=== PATIENT | male | born 1960 | race Caucasian/White ===

== ENCOUNTER 2016-10-15 08:52 | Inpatient (IN) | payer OTHER ==
[2016-10-15] VITALS (12 sets, daily range): BP systolic 131–168; BP diastolic 74–98
[~2016-10-15] VITALS: Ht 175.3 cm; Wt 72.6 kg
[~2016-10-15 08:52] MED LIST: LIORESAL 10MG T10 MG PO; MOTRIN 600 MG600 MG PO; ZITHROMAX250 M2 PO
--- NOTE | 2016-10-15 09:18 | NUR ---
PT MEDICATED WITH ATIVAN PER EMAR.
--- NOTE | 2016-10-15 09:19 | ED DYSPNEA/ASTHMA COMPLAINT ---
History of Present Illness General Chief Complaint: Chest Pain Stated Complaint: CP, SOB, REQUESTING DETOX Source: patient Exam Limitations: no limitations Vital Signs & Intake/Output Vital Signs & Intake/Output Vital Signs Date Time Temp Pulse Resp B/P Pulse O2 O2 Flow FiO2 Ox Delivery Rate 10/17 1609 98.2 103 19 132/84 95 10/17 1200 98.0 70 20 136/70 10/17 0700 97.6 84 18 124/88 96 Room Air 10/16 2343 98.1 94 18 130/84 96 Room Air ED Intake and Output 10/17 0000 10/16 1200 Intake Total 1220 Output Total 250 1 Balance 970 -1 Intake, IV 20 Intake, Oral 1200 Output, Stool 1 Output, Urine 250 Allergies Coded Allergies: NO KNOWN ALLERGIES (12/25/13) Per antibiotic order sheet. -- Pat 12/25/13 Reconcile Medications Folic Acid 1 MG TABLET 1 MG PO DAILY Supplement Lorazepam 1 MG TABLET 2 MG PO Q12 ALCOHOL WITHDRAWAL TAKE ONE DOSE TONIGHT AND THEN TOMORROW MORNING (10/20). Melatonin 5 MG TABLET 5 MG PO AT BEDTIME INSOMNIA Nicotine (Nicorelief) 2 MG GUM 2 MG PO Q4-6 PRN PRN TOBACCO WITHDRAWAL Thiamine HCl (Vitamin B-1) 100 MG TABLET 100 MG PO DAILY Supplement Triage Nurses Notes Reviewed? yes HPI: Patient presents for evaluation of dyspnea that began overnight. Patient has seen Dr. Hoover and was in the process of being referred to Dr. Elizabeth for further evaluation. Since states that he is a heavy alcohol abuser and had his last drink at about 10 to 11:00 last night. He has been drinking heavily, about a bottle of rum per day since July of last year. Prior to that he was sober for 6 years. Since symptoms are otherwise described as intermittent and of a mild intensity. Nothing seems to make symptoms better or worse. Past History Travel History Traveled to [place] past 21 day No Medical History Any Pertinent Medical History? see below for history Neurological: NONE EENT: NONE Cardiovascular: NONE Respiratory: NONE Gastrointestinal: NONE Hepatic: NONE Renal: NONE Musculoskeletal: fracture Psychiatric: NONE Endocrine: NONE Blood Disorders: NONE Cancer(s): NONE CRIMINAL INTELLIGENCE SPECIALIST/Reproductive: NONE Surgical History Surgical History: non-contributory Psychosocial History Who do you live with Spouse What is your primary language Greenlandic Family History Hx Contributory? No Review of Systems Review of Systems Constitutional: Reports: no symptoms. EENTM: Reports: no symptoms. Respiratory: Reports: short of breath. Cardiovascular: Reports: chest pain. GI: Reports: no symptoms. Genitourinary: Reports: no symptoms. Musculoskeletal: Reports: no symptoms. Skin: Reports: no symptoms. Neurological/Psychological: Reports: no symptoms. Hematologic/Endocrine: Reports: no symptoms. Immunologic/Allergic: Reports: no symptoms. All Other Systems: Reviewed and Negative Physical Exam Physical Exam Respiratory: SEE BELOW Comments: Gen.: Well-nourished, well-developed, no acute respiratory distress. Head: Normocephalic, atraumatic. Eyes: Normal inspection bilaterally Ears: Normal inspection bilaterally Nose: Normal inspection Throat/mouth : Moist mucosa Neck: Supple, full range of motion, no goiter Heart: Regular rate and rhythm, no murmurs rubs or gallops Lungs: Clear to auscultation bilaterally with normal air entry Chest: Nontender Back: Normal range of motion Abdomen: Soft, nontender, nondistended, normal bowel sounds Extremities: Normal range of motion grossly, equal radial pulses, no cyanosis clubbing or edema Neurologic: Cranial nerves grossly intact, speech is clear Skin: warm and dry Psychiatric: Calm, cooperative, no apparent delusions or hallucinations Core Measures ACS in differential dx? No Severe Sepsis Present: No Septic Shock Present: No Progress Differential Diagnosis: ALCOHOL DEPENDENCE, ANXIETY Plan of Care: Orders Procedure Date/time Status Nothing by Mouth 10/18 B Active US-LIMITED ABDOMEN 10/18 0800 Active Lab Add-on Test 10/17 0833 Active HEPATIC FUNCTION PANEL 10/17 0626 Active BASIC ELECTROLYTES PLUS BUN&CR 10/17 0626 Active Laboratory Tests 10/17/16 0612: CBC w Diff NO MAN DIFF REQ, RBC 3.69 L, MCV 108.8 H, MCH 37.0 H, RDW 15.2 H, MPV 8.5, Gran % 72.2, Lymphocytes % 7.9 L, Monocytes % 15.7 H, Eosinophils % 3.5, Basophils % 0.7, Absolute Granulocytes 2.3, Absolute Lymphocytes 0.3 L, Absolute Monocytes 0.5, Absolute Eosinophils 0.1, Absolute Basophils 0, PUBS MCHC 34.0 Diagnostic Imaging: Discussed w/RAD: Radiology Read. CXR Impression: SMALL FOCUS OF DISEASE C/W PNEUMONIA Initial ED EKG: NSR, no ST T wave changes Comments: 10/15/2016 9:16:16 AM the patient has a pronounced gross tremors and a CIWA score of 13. I feel that he is in severe alcohol withdrawal and at very high risk of an impending withdrawal seizure. Ativan has been ordered. pt has indication of pneumonia on chest xray but states he was already dxed with pneumonia by dr hoover, per nursing notes. however, pt has no fever or productive cough, clinical presentation inconsistent with pneumonia. Departure Departure Disposition: STILL A PATIENT Condition: Stable Clinical Impression Primary Impression: Alcoholic hepatitis Qualifiers: Ascites presence: without ascites Qualified Code: K70.10 - Alcoholic hepatitis without ascites Secondary Impressions: Alcohol withdrawal syndrome with complication Qualifiers: Complication of substance-induced condition: with unspecified complication Qualified Code: F10.239 - Alcohol dependence with withdrawal, unspecified Dyspnea Qualifiers: Dyspnea type: shortness of breath Qualified Code: R06.02 - Shortness of breath Referrals: GABRIELA YANES,ROB Leiva (PCP/Family) Departure Forms: Customer Survey General Discharge Information Prescriptions: Current Visit Scripts Folic Acid 1 MG PO DAILY 14 Days Thiamine HCl (Vitamin B-1) 100 MG PO DAILY 14 Days Nicotine (Nicorelief) 2 MG PO Q4-6 PRN PRN TOBACCO WITHDRAWAL 14 Days Lorazepam 2 MG PO Q12 #2 TAKE ONE DOSE TONIGHT AND THEN TOMORROW MORNING (10/20). Melatonin 5 MG PO AT BEDTIME 30 Days Admission Note Spoke With: YEHUDA YANES,GAETANO Melo Documentation of Exam: Documentation of any treatments & extenuating circumstances including Concerns Regarding Discharge (functional status, medication knowledge or non-compliance, living conditions, etc.) that warrant an admission rather than observation: Patient presented for evaluation of shortness of breath. However upon presentation to the emergency department the patient had severe gross tremors secondary to alcohol withdrawal. I felt the patient was at very high risk of impending alcohol withdrawal seizure. In addition he presented hypertensive and tachycardic consistent with an acute EtOH withdrawal syndrome. He has responded well to intravenous Ativan with improvement in blood pressure heart rate and tremors. HIS emergency department evaluation reveals elevations in transaminases consistent with alcohol hepatitis. I feel this patient is a very poor candidate for outpatient management at this time given his very high risk of alcohol withdrawal seizures or delirium tremens. I feel he would have great difficulty in compliance with outpatient treatment. Given his presentation I feel he requires hospitalization for treatment with IV Ativan and close clinical monitoring of heart rate blood pressure and CIWA scores. The patient should be administered IV fluids and have liver function studies monitored until transaminases be given to improve. I feel this patient will require a multiple day hospitalization. His acute alcohol withdrawal places him at risk of alcohol withdrawal seizures and delirium tremens for up to 5 days. Critical Care Note Critical Care Note Critical Care Time: 30-74 min
--- NOTE | 2016-10-15 09:25 | NUR ---
PT TO ED FOR CHEST PAIN AND SOB THAT STARTED TODAY. ALSO REQUESTING DETOX FROM ALCOHOL. PT REPORTS HE WAS SOBER FROM ETOH UP UNTIL JULY 2016 RELATED TO STRESS. PT REPORTS TO DRINKING "HALF A HANDLE OF RUM A DAY." LAST DRINK WAS LAST NIGHT 10/14/16 AROUND 2300. PT ARRIVES EXTREMELY SHAKY AT REST, +INTERMITTENT NAUSEA. RECENTLY DIAGNOSED WITH PNEUMONIA BY DR. MUNSON. DENIES ANY KIND OF HALLUCINATIONS. DENIES SI/HI. DR. ONOFRE AT BEDSIDE FOR EVAL.
--- NOTE | 2016-10-15 09:28 | NUR ---
BLOOD WORK SENT TO LAB NOW: SST, LAV, BLUE, DIAZ AND PINK TOPS.
[2016-10-15 09:42] LABS: ABSOLUTE BASOPHIL COUNT 0 /CUMM (0.0-0.2); ABSOLUTE EOSINOPHIL COUNT 0.1 /CUMM (0.0-0.7); ABSOLUTE GRANULOCYTE CT 5.2 /CUMM (1.4-6.5); ABSOLUTE LYMPH COUNT 0.4 /CUMM (1.2-3.4); ABSOLUTE MONOCYTE COUNT 0.6 /CUMM (0.10-0.60); BASOPHIL % 0.2 % (0.0-2.0); GRANULOCYTE % 83.4 % (42.2-75.2); MEAN CORPUSCULAR HGB 36.8 PG (27.0-31.0); MEAN CORPUSCULAR HGB CONC 33.9 G/DL (33.0-37.0); MEAN CORPUSCULAR VOLUME 108.8 FL (80.0-94.0); MEAN PLATELET VOLUME 7.9 FL (7.4-10.4); RBC DISTRIBUTION WIDTH 15.4 % (11.5-14.5); RED BLOOD CELL CT 3.67 /CUMM (4.70-6.10); WHITE BLOOD CELL COUNT 6.2 /CUMM (4.8-10.8)
[2016-10-15 09:54] LABS: PLATELET COUNT 48 /CUMM (130-400)
--- NOTE | 2016-10-15 10:00 | NUR ---
TODD () -HOME NUMBER FOR CONTACT [phone]
--- NOTE | 2016-10-15 10:55 | NUR ---
PT MEDICATED WITH IV ATIVAN PER EMAR.
--- NOTE | 2016-10-15 11:24 | NUR ---
PT'S O2 SAT 90% ON RA. PT PLACED ON 1L OF NC OXYGEN.
--- NOTE | 2016-10-15 13:13 | NUR ---
PT URINE SENT TO THE LAB
--- NOTE | 2016-10-15 13:20 | RADIOLOGY REPORT ---
EXAMINATION: XR PORTABLE CHEST CLINICAL INFORMATION: Dyspnea COMPARISON: May 17, 2016 TECHNIQUE: Portable view of the chest was obtained. FINDINGS: There is a 3 cm region of parenchymal density seen in the right lower lung. No pneumothorax or pleural effusion. Heart normal size. No evidence of pulmonary edema. IMPRESSION: Right lower lobe small focus of disease consistent with pneumonia.
--- NOTE | 2016-10-15 13:31 | History & Physical ---
GAB YANES,[facility] 10/15/16 1331: General Information and HPI MD Statement: I have seen and personally examined OSVALDO KEMP and documented this H&P. The patient is a 55 year old M who presented with a patient stated chief complaint of [etoh abuse]. Source of Information: patient Exam Limitations: no limitations History of Present Illness: 55-year-old male with past medical history of alcohol abuse, smoking presents to the ED with complaints of chest pain and shortness of breath. Patient reports chest pain and shortness of breath since being treated for pneumonia as an outpatient in May. He was followed up by Dr. Hoover. CAT scan showed a nodules less than 6 mm recently. Lung function tests were normal. He is awaiting to see Dr. Elizabeth for further evaluation of shortness of breath. Patient has a history of alcohol abuse. His last admission was 6 years ago, was admitted in ICU after having a withdrawal seizure and was monitored for 6 days. Today he reports having any seizure. Family was present while I was interviewing the patient. He reports drinking, about 1.5 L daily. His last drink was at 11 AM yesterday. Has been sober from 2009 to July 2016. Patient lost his job and a lot of stress with family circumstances and hence resumed to drink again. Has never been in inpatient rehabilitation for alcohol Allergies/Medications Allergies: Coded Allergies: NO KNOWN ALLERGIES (12/25/13) Per antibiotic order sheet. -- Pat 12/25/13 Home Med list No Known Home Medications Past History Travel History Traveled to [place] past 21 day No Medical History Neurological: NONE EENT: NONE Cardiovascular: NONE Respiratory: PNA Gastrointestinal: NONE Hepatic: NONE Renal: NONE Musculoskeletal: fracture Psychiatric: alcohol dependence Endocrine: NONE Blood Disorders: NONE Cancer(s): NONE DIRECT SALES PROFESSIONAL/Reproductive: NONE Surgical History Surgical History: non-contributory Past Family/Social History Family History Relations & Conditions if any FATHER FHx: heart disease BROTHER FHx: heart disease Psychosocial History Where do you live? Home Who Do You Live With? spouse Services at Home: None Smoking Status: Current Everyday Smoker ETOH Use: alcoholic Illicit Drug Use: denies illicit drug use Functional Ability ADLs Independent: dressing, eating, toileting, bathing. Ambulation: independent IADLs Independent: shopping, housework, finances, food prep, telephone, transportation , medication admin. 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 Exam & Diagnostic Data Last 24 Hrs of Vital Signs/I&O Vital Signs Date Time Temp Pulse Resp B/P Pulse O2 O2 Flow FiO2 Ox Delivery Rate 10/15 1329 98.1 93 20 162/93 95 Nasal 1.0L Cannula 10/15 1328 98.1 96 20 162/93 10/15 1229 98.3 86 15 145/90 10/15 1228 98.3 86 15 145/90 95 Nasal 1.0L Cannula 10/15 1214 97.6 91 18 142/85 94 Nasal 1.0L Cannula 10/15 1127 98.3 81 15 131/74 10/15 1127 98.3 81 15 131/74 96 Nasal 1.0L Cannula 10/15 1100 90 Room Air Room Air 10/15 1027 98.3 93 15 149/86 10/15 1021 98.3 93 15 149/86 91 Room Air Room Air 10/15 0907 98.2 107 20 158/91 10/15 0901 97.9 112 24 158/91 98 Room Air Intake & Output 10/15 1600 10/15 0800 10/15 0000 Intake Total 1000 Output Total Balance 1000 Intake, IV 1000 Intake, Oral 0 Physical Exam General Appearance Alert, Oriented X3, Cooperative, No Acute Distress Skin No Rashes Cardiovascular Regular Rate, Normal S1, Normal S2, No Murmurs Lungs b/l ronchi present Abdomen Normal Bowel Sounds, Soft, No Tenderness Neurological Normal Speech Extremities No Clubbing, No Cyanosis, No Edema Assessment/Plan Assessment: Assessment and plan 1. EtOH dependence: We will admit the patient to general medical floor. We'll start him on Ativan scheduled and when necessary per CIWA. Him on aspiration and seizure precautions. Will obtain social work consult tomorrow. In the ED was negative. 2. Transaminitis most likely due to EtOH use: Denies abdominal pain today. We' ll continue to monitor. 3. Smoker: We'll start a monitored in patch and also him on smoking cessation while is in the hospital. 4. Chest pain: Denies active chest pain today. We'll continue to hold off on checking troponins and EKG. But if symptoms recur will obtain both. 5. Thrombocytopenia with increased MCV most likely due to alcohol causing bone marrow suppression: His hemoglobin is also on the lower side. We'll check his vitamin B12 and folate. Full CODE STATUS DVT prophylaxis with Alps secondary to thrombocytopenia As Ranked By This Provider Problem List: 1. Alcohol withdrawal syndrome with complication Qualifiers Complication of substance-induced condition: with unspecified complication Qualified Code: F10.239 - Alcohol dependence with withdrawal, unspecified 2. Alcoholic hepatitis Qualifiers Ascites presence: without ascites Qualified Code: K70.10 - Alcoholic hepatitis without ascites 3. Dyspnea Qualifiers Dyspnea type: shortness of breath Qualified Code: R06.02 - Shortness of breath Core Measures/Miscellaneous Acute Coronary Syndrome ACS Diagnosis: No Cerebrovascular Accident CVA/TIA Diagnosis: No Congestive Heart Failure CHF Diagnosis: No Venous Thromboembolism VTE Risk Factors: Age > 40 VTE Prophylaxis Ordered Inpt: Mechanical (ALPS/TEDS) No Mech VTE prophylaxis d/t: No contraindications No VTE Pharm Prophylaxis d/t: No contraindications VTE Diagnosis: No VTE Type: NONE VTE Confirmed by (Test): NONE Severe Sepsis Severe Sepsis Present: No Septic Shock Septic Shock Present: No Miscellaneous Documentation Attending Case Discussed With: Adenike Primary Care Physician: ROB OCHOA MD Patient sees these Specialists None Level of Patient Care: General Medicine ROSARIO REYES MD 10/16/16 1151: Attending MD Review Statement Attending Statement Attending MD Statement: examined this patient, discuss w/resident/PA/IRONWORKER MACHINE OPERATOR, agreed w/resident/PA/IRONWORKER MACHINE OPERATOR, reviewed EMR data (avail) Attending Assessment/Plan: Agree with resident assessment and plan. Will start scheduled Ativan with PRN, CIWA scoring, vitamin supplementation, monitor electrolytes, DVT PPx
--- NOTE | 2016-10-15 15:15 | NUR ---
BED ASSIGNMENT 204-01
--- NOTE | 2016-10-15 15:37 | NUR ---
REPORT GIVEN TO TONY FORREST. WILL CALL WHEN BED IS READY.
--- NOTE | 2016-10-15 15:47 | NUR ---
PER FLOOR NURSE, IV FLUIDS TO BE HUNG UPSTAIRS ON PUMP.
--- NOTE | 2016-10-15 17:00 | NUR ---
PT STABLE FOR TRANSPORT AND LEFT ED NOW.
--- NOTE | 2016-10-15 18:52 | NUR ---
NURSING NOTE; LATE ENTRY; PT ADMITTED TO FROM ER AT 1710 VIA STRETCHER. PT AMBULATED TO BED WITH UNSTEADY GAIT. PT ALERT AND ORIENTED X3. TREMORS PRESENT. CIWA 10 AND PT MEDICATED WITH PRN ATIVAN. PT DENIES CP AND DENIES SOB. IVF RUNNING PER EMAR. PT OREINTED TO ROOM AND CALL ONOFRE. BED ALARM PLUGGED IN. WILL CONTINUE TO MONITOR.
[2016-10-16 08:01] VITALS: BP 140/70
--- NOTE | 2016-10-16 09:12 | PN- Housestaff ---
JUANY YANES,JASIEL 10/16/16 0911: Subjective Follow-up For: Alcohol detox Pancytopenia Subjective: Patient seen and examined at bedside. Resting comfortably in bed in no acute distress. Denies any chest pain or dyspnea this morning. No headache, sweating, n/v. He endorses some tremors though. CIWA score 7 currently, he required 2mg of IV Ativan 1mg PRN over the past 24 hrs. Review of Systems Constitutional: Reports: see HPI. Objective Last 24 Hrs of Vital Signs/I&O Vital Signs Date Time Temp Pulse Resp B/P Pulse O2 O2 Flow FiO2 Ox Delivery Rate 10/16 0801 98.3 80 20 140/70 92 Room Air 10/15 2346 97.9 74 20 144/86 93 10/15 2330 97.9 74 20 144/86 10/15 1831 80 150/80 10/15 1738 160/90 10/15 1731 98.7 80 19 168/98 94 10/15 1527 99.2 98 15 152/94 10/15 1527 99.2 98 20 152/94 94 Room Air Room Air 10/15 1427 97.2 94 20 148/90 10/15 1427 97.2 94 20 148/90 93 Room Air Room Air 10/15 1329 98.1 93 20 162/93 95 Nasal 1.0L Cannula 10/15 1328 98.1 96 20 162/93 10/15 1229 98.3 86 15 145/90 10/15 1228 98.3 86 15 145/90 95 Nasal 1.0L Cannula 10/15 1214 97.6 91 18 142/85 94 Nasal 1.0L Cannula 10/15 1127 98.3 81 15 131/74 10/15 1127 98.3 81 15 131/74 96 Nasal 1.0L Cannula 10/15 1100 90 Room Air Room Air 10/15 1027 98.3 93 15 149/86 10/15 1021 98.3 93 15 149/86 91 Room Air Room Air Intake & Output 10/16 1600 10/16 0800 10/16 0000 Intake Total 500 Output Total 350 Balance 150 Intake, Oral 500 Output, Urine 350 Patient 72.575 kg Weight Physical Exam General Appearance: Alert, Oriented X3, Cooperative, No Acute Distress Other Physical Findings: Skin No Rashes Cardiovascular Regular Rate, Normal S1, Normal S2, No Murmurs Lungs CTA, normal BS Abdomen Normal Bowel Sounds, Soft, No Tenderness Neurological Normal Speech Extremities No Clubbing, No Cyanosis, No Edema Current Medications: Current Medications Sig/Remington Start time Last Medication Dose Route Stop Time Status Admin Cyanocobalamin/ 1 BAG ONCE ONE 10/15 0930 DC 10/15 Thiamine/Pyridoxine IV 10/15 1729 0956 Sodium Chloride 1,000 ML Folic Acid 1 MG DAILY 10/16 1000 AC PO Influenza Virus 0.5 ML ONCE ONE 10/15 1800 DC 10/15 Vaccine IM 10/15 1801 2125 Lorazepam 0 .STK-MED ONE 10/15 1428 DC PO Lorazepam 0 Q1P PRN 10/15 1345 AC 10/15 IV 2125 Lorazepam 2 MG Q6 10/15 1336 AC 10/16 PO 0544 Lorazepam 2 MG Q2P PRN 10/15 1300 DC IV Lorazepam 1 MG Q2P PRN 10/15 1300 DC IV Lorazepam 2 MG ONE ONE 10/15 1100 DC 10/15 IV 10/15 1101 1055 Lorazepam 0 .STK-MED ONE 10/15 1053 DC .ROUTE Lorazepam 2 MG ONE ONE 10/15 0930 DC 10/15 IV 10/15 0931 0922 Melatonin 5 MG AT BEDTIME 10/15 2200 AC 10/15 PO 2125 Multivitamins 1 TAB DAILY 10/16 1000 AC PO Nicotine 0 .STK-MED ONE 10/15 1428 DC TOP Nicotine 21 MG DAILY 10/15 1420 AC 10/15 TOP 1433 Sodium Chloride 1,000 ML Q10H 10/15 1345 DC 10/15 IV 10/15 2344 1733 Thiamine HCl 100 MG DAILY 10/16 1000 AC PO Thiamine HCl 0 .STK-MED ONE 10/15 0935 DC .ROUTE Last 24 Hrs of Lab/Samuel Results Last 24 Hrs of Labs/Mics: Laboratory Tests 10/16/16 0610: Total Bilirubin Pending, Direct Bilirubin Pending, AST Pending, ALT Pending, Alkaline Phosphatase Pending, Total Protein Pending, Albumin Pending, CBC w Diff Pending, WBC Pending, RBC Pending, Hgb Pending, Hct Pending, MCV Pending, MCH Pending, RDW Pending, Plt Count Pending, MPV Pending, PUBS MCHC Pending 10/15/16 1845: Lactic Acid Cancelled 10/15/16 1845: Lactic Acid 1.7 10/15/16 1311: Urine Opiates Screen < 100.00, Methadone Screen < 40, Barbiturate Screen < 60, Ur Phencyclidine Scrn < 6.00, Amphetamines Screen < 100, U Benzodiazepines Scrn < 85, Urine Cocaine Screen < 50, Urine Cannabis Screen < 5.00 10/15/16 0925: Anion Gap 23 H, Estimated GFR > 60, BUN/Creatinine Ratio 12.9, Glucose 107 H, Serum Osmolality 299 H, Calcium 9.3, Magnesium 1.9, Total Bilirubin 1.1, AST 244 H, ALT 185 H, Alkaline Phosphatase 105, Total Protein 7.7, Albumin 4.7, Globulin 3.0, Albumin/Globulin Ratio 1.6, Lipase 272, Vitamin B12 868, Folate 3.6, PT 10.0, INR 0.95, CBC w Diff MAN DIFF ORDERED, RBC 3.67 L, MCV 108.8 H, MCH 36.8 H, RDW 15.4 H, MPV 7.9, Gran % 83.4 H, Lymphocytes % 5.7 L, Monocytes % 9.7 H, Eosinophils % 1.0, Basophils % 0.2, Absolute Granulocytes 5.2, Absolute Lymphocytes 0.4 L, Absolute Monocytes 0.6, Absolute Eosinophils 0.1, Absolute Basophils 0, Platelet Estimate DECREASED, Anisocytosis 1+, Macrocytic Cells 1+, Stomatocytes 1+, PUBS MCHC 33.9, Serum Alcohol 41.0 Assessment/Plan Assessment: 55-year-old male with past medical history of alcohol abuse who was admitted for alcohol intoxication. # EtOH dependence * Cont Ativan 2mg PO Q6 * Cont Ativan 1mg IV PRN per CIWA protocol * Aspiration and seizure precautions * Social work consulted, follow recs # Pancytopenia CBC on admission revealed WBC 6.2, H/H 13.5 & 40, plt 40. With increased MCV most likely due to alcohol-induced bone marrow suppression. * Check his vitamin B12 and folate - WNL * CBC daily - WBC 3.1, H/H 12.4 & 36.8, plt 25 * Fall precautions # Transaminitis Most likely due to EtOH use. Denies any abdominal pain. * Trend LFTs - improving # Tobacco use Patient smokes 2 packs a day. * Smoking cessation counseling * Nicotine patch daily * Nicotine gum as needed # Chest pain - resolved Currently denies active chest pain today. We'll continue to hold off on checking troponins and EKG. But if symptoms recur will obtain both. Full CODE STATUS DVT prophylaxis with Alps secondary to thrombocytopenia Problem List: 1. Myofascial pain on right side 2. PNA (pneumonia) 3. Alcoholic hepatitis 4. Alcohol withdrawal syndrome with complication 5. Dyspnea 6. Thrombocytopenia 7. Tobacco abuse Pain Ratin Pain Location: 0 Pain Goal: Remain pain free Pain Plan: Mild pathway Tomorrow's Labs & Rationales: CBC to monitor for thrombocytopenia GAETANO BLACKMAN 10/16/16 1600: Attending MD Review Statement Attending Statement Attending MD Statement: examined this patient, discuss w/resident/PA/CAREER REPRESENTATIVE, agreed w/resident/PA/CAREER REPRESENTATIVE, reviewed EMR data (avail), discussed with case mgmt Attending Assessment/Plan: Pt seen and examined at bedside. Has tremors from etoh withdrawl. Cont with CIWA protocol. Thrombocytopenia- platelets today are 25K. Secondary to alcohol. Nicotine dependence- cont. on nicotine patch. Transaminitis most likely due to EtOH use d/w pt the care plan.
[2016-10-16 09:21] LABS: ABSOLUTE BASOPHIL COUNT 0 /CUMM (0.0-0.2); ABSOLUTE EOSINOPHIL COUNT 0.1 /CUMM (0.0-0.7); ABSOLUTE LYMPH COUNT 0.2 /CUMM (1.2-3.4); RBC DISTRIBUTION WIDTH 15.3 % (11.5-14.5); WHITE BLOOD CELL COUNT 3.1 /CUMM (4.8-10.8)
[2016-10-16 10:14] LABS: ABSOLUTE GRANULOCYTE CT 2.4 /CUMM (1.4-6.5); ABSOLUTE MONOCYTE COUNT 0.4 /CUMM (0.10-0.60); BASOPHIL % 0.4 % (0.0-2.0); EOSINOPHIL % 2.5 % (0-5); GRANULOCYTE % 78.9 % (42.2-75.2); HEMATOCRIT 36.8 % (42-52); MEAN CORPUSCULAR HGB 36.8 PG (27.0-31.0); MEAN CORPUSCULAR HGB CONC 33.8 G/DL (33.0-37.0); MEAN CORPUSCULAR VOLUME 109.2 FL (80.0-94.0); MEAN PLATELET VOLUME 9.6 FL (7.4-10.4); RED BLOOD CELL CT 3.37 /CUMM (4.70-6.10)
[2016-10-16 10:42] LABS: PLATELET COUNT 25 /CUMM (130-400)
[2016-10-16 15:51] VITALS: BP 150/100
[2016-10-16 23:43] VITALS: BP 130/84
--- NOTE | 2016-10-17 06:31 | PN- Housestaff ---
See Addendum Subjective Follow-up For: Alcohol detox Pancytopenia Subjective: Patient seen and examined at bedside. Resting comfortably in bed in no acute distress. Had one CIWA score of 8 last night and then 0 since then overnight. Received 4 units of IV Ativan PRN over the past 24 hours. Denies any chest pain or dyspnea this morning. No headache, sweating, n/v. Review of Systems Constitutional: Reports: see HPI. Objective Last 24 Hrs of Vital Signs/I&O Vital Signs Date Time Temp Pulse Resp B/P Pulse O2 O2 Flow FiO2 Ox Delivery Rate 10/17 1200 98.0 70 20 136/70 10/17 0700 97.6 84 18 124/88 96 Room Air 10/16 2343 98.1 94 18 130/84 96 Room Air 10/16 1551 98.2 91 18 150/100 93 Intake & Output 10/17 1600 10/17 0800 10/17 0000 Intake Total 260 500 Output Total 250 Balance 260 250 Intake, IV 20 20 Intake, Oral 240 480 Output, Urine 250 Physical Exam General Appearance: Alert, Oriented X3, Cooperative, No Acute Distress Other Physical Findings: Skin No Rashes Cardiovascular Regular Rate, Normal S1, Normal S2, No Murmurs Lungs CTA, normal BS Abdomen Normal Bowel Sounds, Soft, No Tenderness Neurological Normal Speech Extremities No Clubbing, No Cyanosis, No Edema Current Medications: Current Medications Sig/Remington Start time Last Medication Dose Route Stop Time Status Admin Folic Acid 1 MG DAILY 10/16 1000 AC 10/17 PO 0815 Lactated Ringer's 1,000 ML Q13H 10/17 1015 AC 10/17 IV 1015 Lorazepam 0 Q1P PRN 10/15 1345 AC 10/17 IV 0815 Lorazepam 2 MG Q6 10/15 1336 AC 10/17 PO 1129 Melatonin 5 MG AT BEDTIME 10/15 2200 AC 10/16 PO 2204 Multivitamins 1 TAB DAILY 10/16 1000 AC 10/17 PO 0815 Nicotine 2 MG Q4-6 PRN PRN 10/16 1046 AC 10/16 PO 1818 Nicotine 21 MG DAILY 10/15 1420 AC 10/17 TOP 0814 Thiamine HCl 100 MG DAILY 10/16 1000 AC 10/17 PO 0815 Last 24 Hrs of Lab/Samuel Results Last 24 Hrs of Labs/Mics: Laboratory Tests 10/17/16 0612: CBC w Diff NO MAN DIFF REQ, RBC 3.69 L, MCV 108.8 H, MCH 37.0 H, RDW 15.2 H, MPV 8.5, Gran % 72.2, Lymphocytes % 7.9 L, Monocytes % 15.7 H, Eosinophils % 3.5, Basophils % 0.7, Absolute Granulocytes 2.3, Absolute Lymphocytes 0.3 L, Absolute Monocytes 0.5, Absolute Eosinophils 0.1, Absolute Basophils 0, PUBS MCHC 34.0 Assessment/Plan Assessment: 55-year-old male with past medical history of alcohol abuse who was admitted for alcohol intoxication. # EtOH dependence * Cont Ativan 2mg PO Q6 * Cont Ativan 1mg IV PRN per CIWA protocol * Aspiration and seizure precautions * Social work consulted, follow recs * Start IV hydration with LR at 75 cc/hr # Pancytopenia CBC on admission revealed WBC 6.2, H/H 13.5 & 40, plt 40. With increased MCV most likely due to alcohol-induced bone marrow suppression. * Check his vitamin B12 and folate - WNL * CBC daily - WBC 3.2, H/H 13.7 & 40.2, plt 30 * Fall precautions # Transaminitis Most likely due to EtOH use. Denies any abdominal pain. * Trend LFTs - improving * Follow RUQ U/S # Tobacco use Patient smokes 2 packs a day. * Smoking cessation counseling * Nicotine patch daily * Nicotine gum as needed # Chest pain - resolved Currently denies active chest pain today. We'll continue to hold off on checking troponins and EKG. But if symptoms recur will obtain both. Full CODE STATUS DVT prophylaxis with Alps secondary to thrombocytopenia Problem List: 1. Myofascial pain on right side 2. PNA (pneumonia) 3. Alcoholic hepatitis 4. Alcohol withdrawal syndrome with complication 5. Dyspnea 6. Thrombocytopenia 7. Tobacco abuse Pain Ratin Pain Location: 0 Pain Goal: Remain pain free Pain Plan: Mild pathway Tomorrow's Labs & Rationales: None
[2016-10-17 07:00] VITALS: BP 124/88
[2016-10-17 07:53] LABS: ABSOLUTE BASOPHIL COUNT 0 /CUMM (0.0-0.2); ABSOLUTE EOSINOPHIL COUNT 0.1 /CUMM (0.0-0.7); ABSOLUTE GRANULOCYTE CT 2.3 /CUMM (1.4-6.5); ABSOLUTE LYMPH COUNT 0.3 /CUMM (1.2-3.4); ABSOLUTE MONOCYTE COUNT 0.5 /CUMM (0.10-0.60); BASOPHIL % 0.7 % (0.0-2.0); EOSINOPHIL % 3.5 % (0-5); GRANULOCYTE % 72.2 % (42.2-75.2); HEMATOCRIT 40.2 % (42-52); MEAN CORPUSCULAR VOLUME 108.8 FL (80.0-94.0); MEAN PLATELET VOLUME 8.5 FL (7.4-10.4); RBC DISTRIBUTION WIDTH 15.2 % (11.5-14.5); RED BLOOD CELL CT 3.69 /CUMM (4.70-6.10); WHITE BLOOD CELL COUNT 3.2 /CUMM (4.8-10.8)
[2016-10-17 09:15] LABS: PLATELET COUNT 30 /CUMM (130-400)
[2016-10-17 12:00] VITALS: BP 136/70
--- NOTE | 2016-10-17 15:22 | NUR ---
Referral received yesteray am via MDR's. This patient is a 55 year old man, [facility] with ETOH Withdrawal and impending DT's. Patient placed on the CIWA for observation of withdrawal symptoms; this am at 8:00am he was scoring an 8 in the domains of tremors, anxiety and sweats. Mr. Galicia reports this is not his first detox, but after his last one he maintained sobriety for nearly 5 years! Raymundo identifies multiple psychosocial triggers which have led to his relapse including opiate addiction (his stepson), his home [facility], and being laid off from his job. These issues have increased in intensity and while he was initally able to keep his ETOH intake under control, his dependence has just increased to the point where he realized he needed detox. Raymundo is focused on finding an alternate place to live so he is currently unable to commit to formal aftercare. Raymundo identifies significant sober support within his family and his 's family. Will follow and provide patient with resources for aftercare.
[2016-10-17 16:09] VITALS: BP 132/84
[2016-10-17 20:00] VITALS: BP 122/70
[2016-10-17 22:00] VITALS: BP 1/74
[2016-10-18] VITALS: BP 114/76; BP 118/74
[2016-10-18 02:00] VITALS: BP 118/74
[2016-10-18 04:00] VITALS: BP 118/74
[2016-10-18 06:00] VITALS: BP 118/72; BP 120/74
--- NOTE | 2016-10-18 06:24 | PN- Housestaff ---
See Addendum Subjective Follow-up For: Alcohol detox Pancytopenia Subjective: Patient seen and examined at bedside. CIWA scores have been ranging from 0-3 for the past 24 hours. Required 1mg of PRN IV Ativan. This morning he is resting comfortably in bed in no acute distress. Denies any chest pain or dyspnea. No headache, sweating, n/v. Eating well and moving bowels. Review of Systems Constitutional: Reports: see HPI. Objective Last 24 Hrs of Vital Signs/I&O Vital Signs Date Time Temp Pulse Resp B/P Pulse O2 O2 Flow FiO2 Ox Delivery Rate 10/18 1100 98.0 77 20 121/80 94 Room Air 10/18 0600 97.6 94 18 120/74 97 Room Air 10/18 0600 97.6 94 18 120/74 97 Room Air 10/18 0400 98.1 101 20 118/74 10/18 0200 98.1 101 20 118/74 10/18 0000 98.1 101 20 118/74 10/18 0000 97.8 95 18 114/76 97 Room Air 10/17 2200 98.1 101 20 1/74 10/17 2000 97.6 106 20 122/70 10/17 1609 98.2 103 19 132/84 95 10/17 1200 98.0 70 20 136/70 Intake & Output 10/18 1600 10/18 0800 10/18 0000 Intake Total 1175 Output Total 500 Balance 1175 -500 Intake, IV 1175 Number 1 Bowel Movements Output, Urine 500 Physical Exam General Appearance: Alert, Oriented X3, Cooperative, No Acute Distress Other Physical Findings: Skin No Rashes Cardiovascular Regular Rate, Normal S1, Normal S2, No Murmurs Lungs CTA, normal BS Abdomen Normal Bowel Sounds, Soft, No Tenderness Neurological Normal Speech Extremities No Clubbing, No Cyanosis, No Edema Current Medications: Current Medications Sig/Remington Start time Last Medication Dose Route Stop Time Status Admin Folic Acid 1 MG DAILY 10/16 1000 AC 10/18 PO 0855 Lactated Ringer's 1,000 ML Q13H 10/17 1015 DC 10/17 IV 2312 Lorazepam 2 MG Q8 10/18 1400 AC PO Lorazepam 0 Q1P PRN 10/15 1345 AC 10/17 IV 0815 Lorazepam 2 MG Q6 10/15 1336 DC 10/18 PO 0659 Melatonin 5 MG AT BEDTIME 10/15 2200 AC 10/17 PO 2159 Multivitamins 1 TAB DAILY 10/16 1000 AC 10/18 PO 0855 Nicotine 2 MG Q4-6 PRN PRN 10/16 1046 AC 10/16 PO 1818 Nicotine 21 MG DAILY 10/15 1420 AC 10/18 TOP 0855 Thiamine HCl 100 MG DAILY 10/16 1000 AC 10/18 PO 0855 Assessment/Plan Assessment: 55-year-old male with past medical history of alcohol abuse who was admitted for alcohol intoxication. # EtOH dependence * Taper Ativan 2mg PO Q6 to Q8 * Cont Ativan 1mg IV PRN per CIWA protocol * Aspiration and seizure precautions * Social work consulted, follow recs * Discontinue IV hydration with LR at 75 cc/hr # Pancytopenia CBC on admission revealed WBC 6.2, H/H 13.5 & 40, plt 40. With increased MCV most likely due to alcohol-induced bone marrow suppression. * Check his vitamin B12 and folate - WNL * Check CBC tmrw * Fall precautions # Transaminitis Most likely due to EtOH use. Denies any abdominal pain. * Trend LFTs - improving * Follow RUQ U/S - increased echogenicity of the liver c/w hepatic steatosis. # Tobacco use Patient smokes 2 packs a day. * Smoking cessation counseling * Nicotine patch daily * Nicotine gum as needed # Chest pain - resolved Currently denies active chest pain today. We'll continue to hold off on checking troponins and EKG. But if symptoms recur will obtain both. Full CODE STATUS DVT prophylaxis with Alps secondary to thrombocytopenia Problem List: 1. Myofascial pain on right side 2. PNA (pneumonia) 3. Alcoholic hepatitis 4. Alcohol withdrawal syndrome with complication 5. Dyspnea 6. Thrombocytopenia 7. Tobacco abuse Pain Ratin Pain Location: 0 Pain Goal: Remain pain free Pain Plan: Mild path Tomorrow's Labs & Rationales: CBC to monitor for pancytopenia
--- NOTE | 2016-10-18 09:13 | NUR ---
NURSING NOTE: PT LEFT FLOOR VIA STRETCHER WITH DISTRIBUTION FOR ABDOMINAL US PER MD ORDER, NPO, PT AWAKE, A/OX3, ROOM AIR, DENIES PAIN, TICKET TO RIDE COMPLETE,. AWAIT RETURN TO FLOOR.
--- NOTE | 2016-10-18 10:54 | ULTRASOUND REPORT ---
EXAMINATION: US ABDOMEN LIMITED CLINICAL INFORMATION: Transaminitis and chronic ethanol use. Assess for hepatitis or cirrhosis. COMPARISON: Abdominal ultrasound 10/21/2009. TECHNIQUE: Real-time imaging of the right upper quadrant abdominal viscera. FINDINGS: PANCREAS: Normal. LIVER: The liver demonstrates normal size and contour. It has diffusely increased echogenicity consistent with hepatic steatosis. No focal lesion or intrahepatic biliary duct dilatation. GALLBLADDER: Normal. The gallbladder is physiologically distended without evidence of stones, sludge, polyps, wall thickening or pericholecystic fluid. COMMON BILE DUCT: Normal in caliber measuring 0.35 cm in diameter. RIGHT KIDNEY: Normal. No hydronephrosis. No renal calculi or focal parenchymal lesions. The kidney measures 12.2 cm in maximum dimension. FREE FLUID: None. IMPRESSION: 1. There is increased echogenicity of the liver consistent with hepatic steatosis. 2. The remainder of the study is unremarkable.
[2016-10-18 11:00] VITALS: BP 121/80
[2016-10-18 16:11] VITALS: BP 126/64
[2016-10-19] VITALS: BP 110/70
[2016-10-19] MEDS ORDERED: FOLIC ACID1 M1 PO (06:30)
[2016-10-19] MEDS ORDERED: VITAMIN B-1100 MG PO (06:30)
[2016-10-19] MEDS ORDERED: LORAZEPAM1 M1 PO ×2 (06:30→09:40)
--- NOTE | 2016-10-19 06:37 | PN- Housestaff ---
JUANY YANES,JASIEL 10/19/16 0637: Subjective Follow-up For: Alcohol detox Pancytopenia Subjective: Patient seen and examined at bedside. Resting comfortably in bed in no acute distress. He reports feeling much better with no compalints. Endores much improvement in tremors and anxiety. Denies any chest pain or dyspnea this morning. No headache, sweating, n/v. CIWA score 0-2 overnight, he required no IV Ativan PRN over the past 24 hrs. Review of Systems Constitutional: Reports: see HPI. Objective Last 24 Hrs of Vital Signs/I&O Vital Signs Date Time Temp Pulse Resp B/P Pulse O2 O2 Flow FiO2 Ox Delivery Rate 10/19 0758 98.6 77 20 120/74 95 Room Air 10/19 0000 95.7 80 20 110/70 94 Room Air Intake & Output 10/19 1600 10/19 0800 10/19 0000 Intake Total 550 Output Total 250 725 Balance -250 -175 Intake, Oral 550 Output, Urine 250 725 Patient 72.575 kg Weight Physical Exam General Appearance: Alert, Oriented X3, Cooperative, No Acute Distress Other Physical Findings: Skin No Rashes Cardiovascular Regular Rate, Normal S1, Normal S2, No Murmurs Lungs CTA, normal BS Abdomen Normal Bowel Sounds, Soft, No Tenderness Neurological Normal Speech Extremities No Clubbing, No Cyanosis, No Edema Current Medications: Current Medications Sig/Remington Start time Last Medication Dose Route Stop Time Status Admin Folic Acid 1 MG DAILY 10/16 1000 DCD 10/19 PO 0832 Lorazepam 2 MG Q12 10/19 1000 DCD PO Lorazepam 2 MG Q8 10/18 1400 DC 10/19 PO 0611 Lorazepam 0 Q1P PRN 10/15 1345 DCD 10/17 IV 0815 Melatonin 5 MG AT BEDTIME 10/15 2200 DCD 10/18 PO 2155 Multivitamins 1 TAB DAILY 10/16 1000 DCD 10/19 PO 0832 Nicotine 2 MG Q4-6 PRN PRN 10/16 1046 DCD 10/16 PO 1818 Nicotine 21 MG DAILY 10/15 1420 DCD 10/19 TOP 0832 Thiamine HCl 100 MG DAILY 10/16 1000 DCD 10/19 PO 0832 Last 24 Hrs of Lab/Samuel Results Last 24 Hrs of Labs/Mics: Laboratory Tests 10/19/16 0725: CBC w Diff NO MAN DIFF REQ, RBC 3.47 L, MCV 109.2 H, MCH 37.1 H, RDW 15.1 H, MPV 8.0, Gran % 67.1, Lymphocytes % 9.1 L, Monocytes % 17.6 H, Eosinophils % 5.4 H, Basophils % 0.8, Absolute Granulocytes 2.6, Absolute Lymphocytes 0.3 L, Absolute Monocytes 0.7 H, Absolute Eosinophils 0.2, Absolute Basophils 0, PUBS MCHC 34.0 Assessment/Plan Assessment: 55-year-old male with past medical history of alcohol abuse who was admitted for alcohol intoxication. # EtOH dependence * Taper Ativan to 2mg PO Q12 - patient can discharged on the taper (to be completed tomorrow morning) * Cont Ativan 1mg IV PRN per [facility] protocol * Aspiration and seizure precautions * Social work consulted, follow recs # Pancytopenia CBC on admission revealed WBC 6.2, H/H 13.5 & 40, plt 40. With increased MCV most likely due to alcohol-induced bone marrow suppression. * Check his vitamin B12 and folate - WNL * Check CBC - improving * Fall precautions # Transaminitis Most likely due to EtOH use. Denies any abdominal pain. * Trend LFTs - improving * Follow RUQ U/S - increased echogenicity of the liver c/w hepatic steatosis. # Tobacco use Patient smokes 2 packs a day. * Smoking cessation counseling * Nicotine patch daily * Nicotine gum as needed # Chest pain - resolved Currently denies active chest pain today. We'll continue to hold off on checking troponins and EKG. But if symptoms recur will obtain both. Full CODE STATUS DVT prophylaxis with Alps secondary to thrombocytopenia Problem List: 1. Myofascial pain on right side 2. PNA (pneumonia) 3. Alcoholic hepatitis 4. Alcohol withdrawal syndrome with complication 5. Dyspnea 6. Thrombocytopenia 7. Tobacco abuse Pain Ratin Pain Location: 0 Pain Goal: Remain pain free Pain Plan: Mild pathway Tomorrow's Labs & Rationales: None RIAZ SANZ MD 10/19/16 1243: Attending MD Review Statement Attending Statement Attending MD Statement: examined this patient, discuss w/resident/PA/CILNICAL SCIENTIST, agreed w/resident/PA/CILNICAL SCIENTIST, reviewed EMR data (avail), discussed with nursing, discussed with case mgmt, amended to note Attending Assessment/Plan: Patient seen and examined. Resting comfortably and not in acute distress. No issues overnight. His CIWA remains low and he has not required additional dose of Ativan. He would like to be discharged today. At this point is safe to be discharged on Ativan 2 mg twice daily today. He is due for his second dose later on today. He'll be due for another dose of Ativan tomorrow morning after which this medication can be discontinued. He is willing to follow-up in the IOP program here at [facility].
[2016-10-19 07:58] VITALS: BP 120/74
[2016-10-19 08:27] LABS: ABSOLUTE BASOPHIL COUNT 0 /CUMM (0.0-0.2); ABSOLUTE EOSINOPHIL COUNT 0.2 /CUMM (0.0-0.7); ABSOLUTE GRANULOCYTE CT 2.6 /CUMM (1.4-6.5); ABSOLUTE LYMPH COUNT 0.3 /CUMM (1.2-3.4); ABSOLUTE MONOCYTE COUNT 0.7 /CUMM (0.10-0.60); BASOPHIL % 0.8 % (0.0-2.0); EOSINOPHIL % 5.4 % (0-5); GRANULOCYTE % 67.1 % (42.2-75.2); HEMATOCRIT 37.9 % (42-52); MEAN CORPUSCULAR HGB 37.1 PG (27.0-31.0); MEAN CORPUSCULAR VOLUME 109.2 FL (80.0-94.0); RBC DISTRIBUTION WIDTH 15.1 % (11.5-14.5); RED BLOOD CELL CT 3.47 /CUMM (4.70-6.10); WHITE BLOOD CELL COUNT 3.8 /CUMM (4.8-10.8)
[2016-10-19 09:11] LABS: PLATELET COUNT 40 /CUMM (130-400)
[2016-10-19] MEDS ORDERED: NICORELIEF2 MG PO (09:40)
--- NOTE | 2016-10-19 09:43 | Patient Discharge Instructions ---
Discharge Instructions General Discharge Information You were seen/treated for: Alcohol intoxication Special Instructions: Please follow up with your primary care physician (Dr. Whitaker) within a week of discharge. Please follow the recommendations of the social work instructor with follow ups at [facility]. Return to ED if you have worsening/persistent tremors, anxiety, abdominal pain, sweating, nasuea or vomiting. Diet Continue normal diet: Yes Activity Full Activity/No Limits: Yes Acute Coronary Syndrome Inclusion Criteria At DC or during hospital stay patient has or had the following: ACS DIAGNOSIS No Discharge Core Measures Meds if any: Prescribed or Continued at Discharge Meds if any: NOT Prescribed or Continued at Discharge Congestive Heart Failure Inclusion Criteria At DC or during hospital stay patient has or had the following: CHF DIAGNOSIS No Discharge Core Measures Meds if any: Prescribed or Continued at Discharge Meds if any: NOT Prescribed or Continued at Discharge Cerebrovascular accident Inclusion Criteria At DC or during hospital stay patient has or had the following: CVA/TIA Diagnosis No Discharge Core Measures Meds if any: Prescribed or Continued at Discharge Meds if any: NOT Prescribed or Continued at Discharge Venous thromboembolism Inclusion Criteria VTE Diagnosis No VTE Type NONE VTE Confirmed by (Test) NONE Discharge Core Measures - Per Current guidelines, there needs to be overlap - treatment for the first 5 days of Warfarin therapy. - If discharged on Warfarin prior to 5 days of - overlap therapy, the patient will need to be - assessed for post discharge needs including - *Post discharge parental anticoagulation - *Warfarin and/or parental anticoagulation education - *Follow up date to check INR post discharge At least 5 days overlap therapy as Inpatient No Meds if any: Prescribed or Continued at Discharge Note: Overlap Therapy is Warfarin and Anticoagulant Meds if any: NOT Prescribed or Continued at Discharge
[2016-10-19] MEDS ORDERED: MELATONIN5 M7 PO (11:05)
--- NOTE | 2016-10-19 18:20 | Discharge Summary ---
Visit Information Visit Dates Admission Date: 10/15/16 Discharge Date: 10/19/16 Hospital Course Course Attending Physician: YEHUDA YANES,GAETANO Melo Primary Care Physician: ROB OCHOA MD Hospital Course: 55-year-old male with past medical history of alcohol and tobacco abuse who was admitted for alcohol intoxication. # EtOH dependence Patient was placed on Ativan to 2mg PO Q6 with IV Ativan PRN per [facility] protocol. His scheduled doses of Ativan were gradually tapered to Q8 and then Q12 as his symptoms improved. Patient was discharged on 2 more doses of Ativan 2mg PO Q12P. # Pancytopenia CBC on admission revealed WBC 6.2, H/H 13.5 & 40, plt 40. In the setting of increased MCV it was attributed due to alcohol-induced bone marrow suppression. His vitamin B12 and folate were checked and normal. Patient received alochol detox treatment and supportive care including IV hydration. Repeat CBC showed improvement in pancytopenia. # Transaminitis The patient presented with elevated AST/ALT of 130 and 128 with total bili and direct bili of 1.5 and 0.5 - most likely due to EtOH use. ALP normal at 71. Denied any abdominal pain. His repeat LFTs showed further elevation of AST/ALT to 263 and 221. We subseqeuntly ordered a RUQ ultrasound which was consistent with increased echogenicity of the liver indicative of hepatic steatosis. Furthermore his hepaptitis panel was unremarkable. Patient was instructed to restrain from alcohol use. # Tobacco use Patient smokes 2 packs a day at home. We provided smoking cessation counseling along with Nicotine patch and gums. Allergies: Coded Allergies: NO KNOWN ALLERGIES (12/25/13) Per antibiotic order sheet. -- Pat 12/25/13 Disposition Summary Disposition Principal Diagnosis: Alcohol intoxication Additional Diagnosis: Hepatic steatosis Discharge Disposition: home or self care Discharge Instructions General Discharge Information Code Status: Full Code Patient's Diet: Regular Patient's Activity: Full Follow-Up Instructions/Appts: Please follow up with your primary care physician (Dr. Ochoa) within a week of discharge. Please follow the recommendations of the licensed social worker with follow ups at [facility]. Return to ED if you have worsening/persistent tremors, anxiety, abdominal pain, sweating, nasuea or vomiting. Medications at Discharge Discharge Medications: Start taking the following new medications: Folic Acid (Folic Acid) 1 MG TABLET 1 Milligram ORAL DAILY Days = 14 No Refills Comments: Last Taken: 10/19/16 Time: 0800AM Thiamine HCl (Vitamin B-1) 100 MG TABLET 100 Milligram ORAL DAILY Days = 14 No Refills Comments: Last Taken: 10/19/16 Time: 0800AM Nicotine (Nicorelief) 2 MG GUM 2 Milligram ORAL EVERY 4-6 HOURS NEEDED as needed for TOBACCO WITHDRAWAL Days = 14 No Refills Comments: NOT GIVEN Lorazepam (Lorazepam) 1 MG TABLET 2 Milligram ORAL EVERY 12 HOURS Qty = 2 No Refills Instructions: TAKE ONE DOSE TONIGHT AND THEN TOMORROW MORNING (10/20). Comments: Last Taken: 10/19/16 Time: 0600AM Melatonin (Melatonin) 5 MG TABLET 5 Milligram ORAL AT BEDTIME Days = 30 No Refills Comments: Last Taken: 10/18/16 Time: 2200PM Copies To: GABRIELA YANES,ROB Leiva Attending MD Review Statement Documenting Attending: RIAZ SANZ M.D Other Findings: I have reviewed the discharge summary
--- NOTE | 2016-10-20 14:59 | NUR ---
Late Entry: Aware of patients discharge yesterday. Patient had left the building prior to being seen by me again. Call placed to patient at home; message left and will be available to assist if patient returns my call.
== END 2016-10-19 12:15 | DRG 897 ==
LOC: ENRESERVDT → ENRESERVTM → ERH 08:52 → 2NB 12:17 → ENPENDDIS 12:17 → 2NB 12:17 → ERHI 12:17 → 2NB 17:00
PROVIDERS: Emergency Medicine; Internal Medicine; ADMIT Internal Medicine
DX: F10.239 Alcohol dependence with withdrawal, unspecified (principal); D61.818 Other pancytopenia; K76.0 Fatty (change of) liver, not elsewhere classified; K70.10 Alcoholic hepatitis without ascites; F17.210 Nicotine dependence, cigarettes, uncomplicated; K70.9 Alcoholic liver disease, unspecified; Y90.2 Blood alcohol level of 40-59 mg/100 ml
CPT/HCPCS: 2NBSP; 36415; 80307; 82436; 93005; 93010; 96374; 96375; 96376; 97112-GO; 97116-GO; 97161-GP; 97530-GO; 99291; G0480; J3490; J7120; Q2036